=== PATIENT | female | born 1945 | race Caucasian/White ===

== ENCOUNTER → 2016-12-29 | Outpatient (CLI) | payer OTHER ==
[~2016-12-29] MED LIST: FLEXERIL5 MG; LOTENSIN5 MG; MICROZIDE12.5 MG; NORVASC2.5 MG; ULTRAM 50MG TAB50 MG; ZANTAC 7575 MG; ZYLOPRIM 100MG100 MG
== END ==
LOC: MC.RAD 10:45
DX: Z12.31 Encounter for screening mammogram for malignant neoplasm of breast (principal)

== ENCOUNTER → 2018-01-05 | Outpatient (CLI) | payer MEDICARE, OTHER | LOC: MC.RAD 14:19 | DX: Z12.31 Encounter for screening mammogram for malignant neoplasm of breast (principal) ==

== ENCOUNTER → 2019-01-11 | Outpatient (CLI) | payer OTHER | LOC: MC.RAD 11:05 | DX: Z12.31 Encounter for screening mammogram for malignant neoplasm of breast (principal) ==

== ENCOUNTER → 2020-01-23 | Outpatient (CLI) | payer OTHER | LOC: MC.RAD 13:12 | DX: Z12.31 Encounter for screening mammogram for malignant neoplasm of breast (principal) ==

== ENCOUNTER 2020-10-16 06:57 | Day surgery (SDC) | payer OTHER ==
[~2020-10-16] VITALS: Ht 182.9 cm; Wt 103.6 kg
[2020-10-16] MEDS ORDERED: EPIPEN 2-PAK1 MG/ML IM (07:33)
[2020-10-16] MEDS ORDERED: NORVASC 5MG5 MG/TAB PO (07:33)
[2020-10-16] MEDS ORDERED: RT ADVAIR 228 DISKUS IH (07:33)
[2020-10-16] MEDS ORDERED: PROAIR HFA0.09 MG/AC IH (07:33)
[2020-10-16] MEDS ORDERED: HCTZ 25MG TAB25 MG PO (07:34)
[2020-10-16] MEDS ORDERED: COZAAR100 MG PO (07:34)
[2020-10-16] MEDS ORDERED: PRIL40 PO (07:35)
[2020-10-16] MEDS ORDERED: ROBAXIN 75750 MG/TAB PO (07:35)
[2020-10-16] MEDS ORDERED: ASPIRIN E.C. 8181 MG PO (07:36)
[2020-10-16] MEDS ORDERED: K-DUR 10 MEQ T10 MEQ PO (07:36)
[2020-10-16] MEDS ORDERED: BENADRYL25 M2 PO (07:36)
[2020-10-16 07:37] VITALS: BP 133/74; PULSE 84; TEMP 98
[2020-10-16 09:00] VITALS: BP 128/65; PULSE 78; TEMP 97.8
--- NOTE | 2020-10-16 09:00 | NUR ---
Patient [place] [facility] [place] [facility] [place], accompanied by Endo RN Parris Leslie. Bedside report is received. Patient is alert and oriented. She ambulates to the chair in her room with standby assist and steady gait. Monitoring is applied - VSS and WNL on room air. She denies pain or nausea. She is offered and receives a muffin, juice and water.
[2020-10-16 09:15] VITALS: BP 139/72; PULSE 78
--- NOTE | 2020-10-16 09:15 | NUR ---
Patient is eating/drinking, tolerating PO well. VSS. Denies pain, nausea, or need.
--- NOTE | 2020-10-16 09:20 | NUR ---
Dr. Neal comes to the bedside and speaks with the patient at this time.
[2020-10-16 09:30] VITALS: BP 133/65; PULSE 74
--- NOTE | 2020-10-16 09:50 | NUR ---
Patient has met discharge criteria. Discharge instructions are discussed. She denies any questions and verbalizes understanding. PIV is removed with catheter intact and hemostasis achieved. She changes to her clothing independently. She is escorted to the exit via wheelchair by staff. She is discharged to home with ride in private vehicle at 0950.
== END 2020-10-16 09:50 | disposition home or self-care (01) ==
LOC: SDCO 06:57
DX: K29.30 Chronic superficial gastritis without bleeding (principal); K21.00 Gastro-esophageal reflux disease with esophagitis, without bleeding; D50.9 Iron deficiency anemia, unspecified; I10 Essential (primary) hypertension; J45.909 Unspecified asthma, uncomplicated; Z90.710 Acquired absence of both cervix and uterus; Z88.8 Allergy status to other drugs, medicaments and biological substances
CPT/HCPCS: J2704; J7030

== ENCOUNTER → 2021-02-12 | Outpatient (CLI) | payer OTHER ==
[~2021-02-12] MED LIST changes: +ASPI325T6 PO; +ASPIRIN E.C. 8181 MG PO; +BENADRYL25 M2 PO; +CORICIDIN HBP1 EACH PO; +COZAAR100 MG PO; +EPIPEN 2-PAK1 MG/ML IM; +HCTZ 25MG TAB25 MG PO; +K-DUR 10 MEQ T10 MEQ PO; +NORCO 325 MG-51 TAB PO; +NORVASC 5MG5 MG/TAB PO; +PRIL40 PO; +PROAIR HFA0.09 MG/AC IH; +ROBAXIN 75750 MG/TAB PO; +ROXICODONE 55 MG/TAB PO; +RT ADVAIR 228 DISKUS IH; +SENOKOT S 50 MG1 TAB PO; +ZYRTEC 10MG10 MG PO
== END ==
LOC: MC.RAD 13:00
DX: Z12.31 Encounter for screening mammogram for malignant neoplasm of breast (principal)

== ENCOUNTER → 2021-02-26 | Outpatient (CLI) | payer OTHER | LOC: COL.VAS 02-20 13:30 | DX: R06.00 Dyspnea, unspecified (principal); I51.7 Cardiomegaly ==

== ENCOUNTER 2021-04-10 16:05 | Inpatient (IN) | payer MEDICARE, OTHER ==
[~2021-04-10] VITALS: Ht 180.3 cm; Wt 234.5 kg
[~2021-04-10 16:05] MED LIST changes: -ASPI325T6 PO; -CORICIDIN HBP1 EACH PO; -NORCO 325 MG-51 TAB PO; -ROXICODONE 55 MG/TAB PO; -SENOKOT S 50 MG1 TAB PO; -ZYRTEC 10MG10 MG PO
[2021-06-11 07:07] VITALS: BP 143/76; PULSE 85; TEMP 98.5
[2021-06-11] MEDS ORDERED: ZYRTEC 10MG10 MG PO (07:16)
[2021-06-11] MEDS ORDERED: CORICIDIN HBP1 EACH PO (07:16)
[2021-06-11 10:50] VITALS: BP 143/71; PULSE 70; TEMP 97.5
--- NOTE | 2021-06-11 10:50 | NUR ---
PATIENT IS A&O. VSS. DENIES PAIN IN RLE AND IS UNABLE TO MOVE BLE POST OP. RTK DRESSING IS CD&I WITH BULKY ACEWRAP AND ICE PACK INPLACE. TEDS TO LLE. SCD'S TO BLE. IV FLUIDS INFUSING INTO LEFT WRIST IV. NO C/O N/V. HEAD TO TOE ASSESSMENT WNL. ORIENTED TO ROOM. PATIENT LOOKING AT TV GUIDE. NO OTHER NEEDS. CALL LIGHT IN REACH. NO FAMILY AT BEDSIDE AT THIS TIME.
[2021-06-11 11:05] VITALS: BP 139/63; PULSE 72
--- NOTE | 2021-06-11 11:40 | NUR ---
PATIENT REQUESTING BREATHING TX, RT CALLED.
--- NOTE | 2021-06-11 11:45 | NUR ---
PATIENT C/O [place] AND REQUESTING SOMETHING. GAVE SCHEDULED TYLENOL. PATIENT ORDERED LUNCH.
--- NOTE | 2021-06-11 12:00 | NUR ---
PATIENT NOW REPORTING PAIN IN HER RLE IS BECOMING SEVERE AND IS THROBBING. PATIENT REPORTS THE PAIN STARTED ALL OF THE SUDDEN. GAVE PRN ROXICODONE, TWO TABS. RLE ELEVATED WITH PILLOW AND ICE PACK INPLACE.
--- NOTE | 2021-06-11 12:43 | NUR ---
Plan is to go home with Home health. LEA met with patient about DC plan. Patient reports that she would prefer to go home with her as care support with home health . Spouse is Kai, kai uses a [employer] bluetooth to hear and recieve calls. If needing to call Kai please call twice. Patient reports that PCP is Dr. Gonzalez and a peer specialist, could not remember name. Patient shares that she has a cane and walker although she does not use them. Patient reports that she has an inhaler-albuterol. Patient reports that she had a tick bite that causes her to have an aversion to meets and meat products, Patient reports that she has worked herself back to eating chicken, turkey and fish. Patient reports she can have cheese and milk but no mammals or red meats. Patient reports that she is gluten-free. Patient reports that she has two son in [place] who are both . Espinoza the Eldests is and Benjamín [phone]. Interested in Home health for bathing. Patient has DME supports at home. Will follow up.
[2021-06-11 15:06] VITALS: BP 108/45; PULSE 82; TEMP 97.7
--- NOTE | 2021-06-11 20:00 | NUR ---
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 Assessment complete. A&Ox3. Denies nausea/shortness of breath. VS stable. INTd at this time-tolerating PO/voiding without difficulty. Dressing to right [id number] white/adilene. Fresh ice pack applied. SCDs bilat. HAJA to LLE. Plan of care discussed for this shift to include HS meds/pain control/up out of bed to ambulate/calling for questions/concerns. verbalizes understanding/denies needs. Call light in reach. Will monitor.
[2021-06-11 20:10] VITALS: BP 114/54; PULSE 78; TEMP 97.8
--- NOTE | 2021-06-11 21:00 | NUR ---
Called with c/o pain to right knee-described as throbbing-rating isaac 8/10. Reliance given per dr murillo. Up out of bed for first time. States her right lower extremity feels heavy/numb. Did stand at side of bed and take a few steps. Voided in commode without difficulty and back to bed. Will monitor.
[2021-06-12 00:06] VITALS: BP 139/67; PULSE 85; TEMP 98.3
--- NOTE | 2021-06-12 01:56 | NUR ---
Called with c/o pain to right knee-rating pain 8/10 on pain scale-described as throbbing. Oxycodone given per dr murillo. Will monitor.
--- NOTE | 2021-06-12 04:00 | NUR ---
Called requesting pain medication. Rating pain 8/10 on pain scale to right knee-described as throbbing. Morphine given per dr order for breakthrough pain.
[2021-06-12 04:13] VITALS: BP 136/59; PULSE 91; TEMP 97.5
--- NOTE | 2021-06-12 05:41 | NUR ---
C/O pain to right knee-rating pain 8/10 on pain scale-described as constant throbbing. Oxycodone given per dr murillo.
[2021-06-12 07:04] LABS: HEMOGLOBIN 9.2 g/dl (12.5-16.0)
[2021-06-12 07:41] VITALS: BP 169/72; PULSE 110; TEMP 98.5
--- NOTE | 2021-06-12 10:53 | NUR ---
Initial visit; Patient thanked [facility] Diver for looking in on her and offering prayer, understanding and God's blessings. [facility] Diver will follow up.
[2021-06-12 11:29] VITALS: BP 138/49; PULSE 86; TEMP 97.9
--- NOTE | 2021-06-12 13:34 | NUR ---
SW informed by nurse that patient could potentially be referred to a skilled facility for rehab, but will not dc today due to post op. SW will assist during rounds tomorrow to obtain direction on placement. SW will continue to follow.
[2021-06-12 15:49] VITALS: BP 137/48; PULSE 86; TEMP 99.1
[2021-06-12 19:45] VITALS: BP 114/47; PULSE 90; TEMP 98.8
[2021-06-13 00:29] VITALS: BP 129/42; PULSE 85; TEMP 98.6
[2021-06-13 04:18] VITALS: BP 131/47; PULSE 93; TEMP 97.9
--- NOTE | 2021-06-13 06:30 | NUR ---
Report received from JEANIE Li. Patient was in bathroom and ambulated with walker and gait belt to recliner. Call light and bedside table are within reach. Will continue to monitor patient throughout shift.
--- NOTE | 2021-06-13 07:30 | NUR ---
CHANGE OF SHIFT REPORT GIVEN TO DAY SHIFT NURSES, JHON RN AND JACI WARE.
--- NOTE | 2021-06-13 07:44 | NUR ---
REPORT FROM KAILA WARE. DRESSING CHANGE COMPLETE, INCISION WITH WELL APPROXIMATED EDGES. PT TOLERATED WELL.
[2021-06-13 07:47] VITALS: BP 135/46; PULSE 93; TEMP 98.6
--- NOTE | 2021-06-13 08:31 | NUR ---
PRN GIVEN BECAUSE PATIENT WAS FEELING SOB WHEN DOING IS EXERCISES. HOWEVER, IS FEELING BETTER BUT STILL WANTED TX.
[2021-06-13 11:31] VITALS: BP 124/52; PULSE 89; TEMP 98
--- NOTE | 2021-06-13 14:40 | NUR ---
PT AMBULATING WITH SBA, PAIN CONTROLLED WITH PO PAIN MEDS. PT INDEPENDENT BACK TO BED FROM BR. SLOW STEADY GAIT. PT TOLERATING PO INTAKE WITH NO NAUSEA OR VOMITING. PLAN ON OUT PT THERAPY ON DISCHARGE.
--- NOTE | 2021-06-13 14:44 | NUR ---
AGREE WITH ASSESSMENTS OF JHON WARE.
[2021-06-13] MEDS ORDERED: ASPI325T6 PO (14:47)
[2021-06-13] MEDS ORDERED: ROXICODONE 55 MG/TAB PO (14:49)
[2021-06-13] MEDS ORDERED: SENOKOT S 50 MG1 TAB PO (14:50)
[2021-06-13] MEDS ORDERED: NORCO 325 MG-51 TAB PO (14:51)
--- NOTE | 2021-06-13 15:47 | NUR ---
Patient escorted to car by JEANIE Fernández. Patient's room is clear of all belongings to include cell phone and educational consultant.
== END 2021-06-13 15:47 | disposition home or self-care (01) | DRG 470 ==
LOC: SURG 06-11 05:34 → INPTSU 06-11 05:34 → SURG 06-11 07:30
PROVIDERS: ADMIT Orthopaedic Surgery
PROC: 0SRC0J9 Replacement of Right Knee Joint with Synthetic Substitute, Cemented, Open Approach (ICD-10-PCS; principal; 2021-06-11 08:00)
DX: M17.11 Unilateral primary osteoarthritis, right knee (principal); I10 Essential (primary) hypertension; K21.9 Gastro-esophageal reflux disease without esophagitis; D64.9 Anemia, unspecified; J45.909 Unspecified asthma, uncomplicated; F41.9 Anxiety disorder, unspecified; Z20.822 Contact with and (suspected) exposure to COVID-19
CPT/HCPCS: A9284; C1713; C1776; J0690; J2250; J2270; J2704; J3010; J7120

== ENCOUNTER → 2021-07-15 | Outpatient (CLI) | payer OTHER ==
[~2021-07-15] MED LIST changes: +ASPI325T6 PO; +CORICIDIN HBP1 EACH PO; +NORCO 325 MG-51 TAB PO; +ROXICODONE 55 MG/TAB PO; +SENOKOT S 50 MG1 TAB PO; +ZYRTEC 10MG10 MG PO
== END ==
LOC: COL.VAS 12:58
DX: M79.661 Pain in right lower leg (principal); Z96.651 Presence of right artificial knee joint

== ENCOUNTER 2022-02-07 16:00 | Outpatient (RCR) | payer OTHER ==
[2022-01-27 15:32] VITALS: BP 167/88; PULSE 89; TEMP 98.3
[2022-01-31 15:04] VITALS: BP 114/51; PULSE 81; TEMP 98.1
[2022-02-03 15:44] VITALS: BP 124/73; PULSE 81; TEMP 97.5
[2022-02-05 15:00] VITALS: BP 139/84; PULSE 85; TEMP 98.1
[~2022-02-07] VITALS: Ht 180.3 cm; Wt 103.1 kg
[2022-02-07 15:10] VITALS: BP 136/79; PULSE 82; TEMP 98
[2022-03-19] MEDS ORDERED: EPI-PEN JR0.5 MG/ML IM (16:39)
[2022-03-19] MEDS ORDERED: COZAAR100 MG PO (16:40)
== END 2022-02-07 16:26 | disposition home or self-care (01) ==
LOC: EUO 16:00
DX: D50.9 Iron deficiency anemia, unspecified (principal)
CPT/HCPCS: J1756

== ENCOUNTER → 2022-04-01 | Outpatient (CLI) | payer OTHER ==
[~2022-04-01] MED LIST changes: +EPI-PEN JR0.5 MG/ML IM
== END ==
LOC: MC.RAD 02-24 11:30
DX: Z12.31 Encounter for screening mammogram for malignant neoplasm of breast (principal)

== ENCOUNTER 2022-05-14 09:01 | Outpatient (CLI) | payer OTHER ==
[~2022-05-14] VITALS: Ht 180.3 cm; Wt 101.9 kg
[2022-05-14 09:55] VITALS: BP 125/80; PULSE 76
== END 2022-05-14 11:02 ==
LOC: EUO 09:01
DX: D50.9 Iron deficiency anemia, unspecified (principal)
CPT/HCPCS: J1756

== ENCOUNTER 2022-07-09 13:39 | Outpatient (RCR) | payer OTHER ==
[~2022-07-09] VITALS: Ht 180.3 cm; Wt 103.0 kg
[2022-07-09 13:56] VITALS: BP 162/76; PULSE 83; TEMP 97.6
[2022-07-09 14:15] VITALS: BP 133/58; PULSE 84
== END 2022-07-09 14:45 | disposition home or self-care (01) ==
LOC: EUO 13:39
DX: Z51.81 Encounter for therapeutic drug level monitoring (principal)
CPT/HCPCS: J1756

== ENCOUNTER 2022-09-03 15:21 | Outpatient (RCR) | payer OTHER ==
[~2022-09-03] VITALS: Ht 180.3 cm; Wt 103.0 kg
[2022-09-03 16:05] VITALS: BP 116/71; PULSE 79; TEMP 97.7
== END 2022-09-03 18:21 | disposition home or self-care (01) ==
LOC: EUO 15:21
DX: D50.9 Iron deficiency anemia, unspecified (principal)
CPT/HCPCS: J1756

== ENCOUNTER → 2023-05-06 | Outpatient (CLI) | payer OTHER | LOC: MC.RAD 11:42 | DX: Z12.31 Encounter for screening mammogram for malignant neoplasm of breast (principal) ==